=== PATIENT | male | born 1980 | race Caucasian/White ===

== ENCOUNTER → 2019-10-24 | Outpatient (CLI) | payer OTHER, MEDICARE | END | disposition home or self-care (01) | LOC: LAB 13:18 | PROVIDERS: ATTEND Surgery | DX: Z11.59 Encounter for screening for other viral diseases (principal) | CPT/HCPCS: U0003-CS ==

== ENCOUNTER → 2019-10-30 | Day surgery (SDC) | payer OTHER, MEDICAID ==
[~2019-10-30] MED LIST: LIDOCAINE 1% Multi-Dose 20 ML VIAL. INJ ONE; LIDOCAINE 1%/EPI 1:100,000 20 ML VIAL. INJ ONE
[2019-10-30 10:38] VITALS: BP 148/96
--- NOTE | 2019-10-30 11:19 | PDOC4 ---
Operative Note Operative Note Date: May 01, 2019 at 1118 Preoperative diagnosis: Left neck mass Postoperative diagnosis: Same Procedure: Excision left neck mass Surgeon: Jerad Specimen: Left neck mass Dictation: Patient is 39-year-old male is complaining of enlarging mass in his left neck. Procedure of excision was explained to the patient detail was benefits were also discussed occluding bleeding infection alternatives to this procedure also discussed with the patient who seemed to understand and gave both verbal and written consent to have procedure performed. Patient was taken to the minors room placed in the left lateral cubitus position his left neck was prepped and draped you sterile fashion using ChloraPrep and area over the mass was injected quarter percent Marcaine with epinephrine incision was made with 15 blade scalpel is carried down through the subcutaneous tissue excising the mass and whole which appeared to be a sebaceous cyst. This was sent for pathology the wound was then closed in a single layer running subcuticular 4-0 Monocryl Mastisol Steri-Strips and island dressings were applied. Patient tolerated procedure well was discharged home in stable condition all sponge instrument needle counts listed as correct estimated blood loss less than 5 mL MAKAYLA BARNEY MD Oct 30, 2019 11:19
--- NOTE | 2019-10-30 11:21 | DISCH ---
DISCHARGE INSTRUCTIONS Condition on Discharge Condition on Discharge: Stable Activity After Discharge Activity Instructions for Disc: No restrictions Diet after Discharge Diet after Discharge: Regular Wound Incision Care Other wound/incision instructi: May shower in 24 hours Contacting the after DC Call your doctor for: If your condition worsens Follow-Up Follow up with: Dr. Barney in 2 weeks MAKAYLA BARNEY MD Oct 30, 2019 11:21
--- NOTE | 2019-10-31 18:06 | PATHOLOGY ---
[facility] Accession Number: [id number] . 01 Material submitted: . neck - POSTERIOR NECK MASS. Modifiers: posterior . 01 Clinical history: . Cyst posterior neck . 02 Diagnosis: Soft tissue "posterior neck mass", excision: - Epidermal inclusion cyst; negative for malignancy. . (MLK/db; 10/31/2019) LBQ 10/31/2019 1733 Local . 02 Electronically signed: . Jaime Yancey MD, Pathologist NPI- [id number] . 01 Gross description: . The specimen is received in formalin, labeled "Luis Bowers, posterior neck mass". Received is a segment of yellow-wesley fibroadipose tissue with attached pale wesley friable material measuring 1.7 x 1.5 x 1.0 cm in greatest dimensions. Sectioning reveals a previously ruptured unilocular cystic structure measuring 1.0 cm filled with pale-wesley friable material. The specimen is submitted representatively in cassette A1. (CAA; 10/30/2019) QA/[facility] 10/30/2019 1655 Local . 02 Pathologist provided ICD-10: L72.0 . 02 CPT . 134301 Specimen Comment: A courtesy copy of this report has been sent to [phone], [phone] Specimen Comment: [id number] Specimen Comment: Report sent to / DR LINCOLN [facility] [address], [place] [id number] MD Grayson Orozco MD Phone: [phone] [facility] [address] [place], [place] [id number] MD Wil Godinez MD Phone: [phone]
== END ==
LOC: SURG 10:26 → EDUNIT# 11:45
PROVIDERS: ATTEND Surgery
DX: R22.1 Localized swelling, mass and lump, neck (principal); L72.0 Epidermal cyst
CPT/HCPCS: 11422; J3490